=== PATIENT | female | born 1980 ===

== ENCOUNTER 2024-10-17 09:39 | Emergency (ER) | payer OTHER ==
[~2024-10-17] VITALS: Ht 165.1 cm; Wt 50.2 kg
[2024-10-17 09:47] VITALS: BP 105/66; PULSE 82; RESP 18; TEMP 97.8; O2SAT 100
== END 2024-10-17 15:45 | disposition left against medical advice (07) ==
LOC: ER 09:40
DX: R20.0 Anesthesia of skin (principal); Z53.21 Procedure and treatment not carried out due to patient leaving prior to being seen by health care provider

== ENCOUNTER 2025-04-27 12:54 | Emergency (ER) | payer OTHER ==
[~2025-04-27] VITALS: Ht 165.1 cm; Wt 41.0 kg
[2025-04-27 12:57] VITALS: BP 142/73; PULSE 85; RESP 16; TEMP 98.7; O2SAT 100
--- NOTE | 2025-04-27 13:51 | Physician Documentation ---
History of Present Illness ~ Chief Complaint: See Chief Complaint Stated Complaint: LUMP ON BACK Time Seen by MD: 13:31 Primary Medical Doctor: [facility] Source: patient Mode of Arrival: POV Exam Limitations: no limitations HPI 45-year-old female requesting a referral to Dermatology for an atypical skin lesion to her left shoulder blade she is concerned for cancer. She has noticed a little mole that has now turned a little crusty and is bigger in size. Medication Reconciliation Allergies: Coded Allergies: No Known Allergies (Unverified , 10/17/24) Past Medical History Past Medical History: No Pertinent History Review of Systems All Other Systems at this time: Reviewed and Negative Integumentary: Reports: see HPI Physical Exam Vital Signs: RN Vital Signs have been reviewed: Yes, Temperature: 98.7, Source: Temporal, Heart Rate: 85, Respiratory Rate: 16, BP: 142/73, Pulse Oximetry: 100, Weight: 40.950 Physical Exam General: Alert, no apparent distress. Respiratory: Lungs clear, no respiratory distress. Chest: No accessory muscle use. Cardiovascular: Regular rate and rhythm, no murmurs. Extremities: Normal range of motion, no deformity. Neurologic: Oriented x4. Psychiatric: Normal mood and affect. Skin: Normal color, warm and dry. No edema, no ecchymosis. 3 mm atypical pigmented skin lesion although on a tattooed area difficult to determine borders small area of keratotic skin nontender Progress Results/Orders Results/Orders Vital Signs 04/27/25 12:57 Temp 98.7 Pulse 85 Resp 16 B/P (MAP) 142/73 Pulse Ox 100 Medical Decision Making Findings Atypical skin lesion needs evaluation for malignancy. Departure Time of Disposition: 13:49 Disposition: 01 HOME / SELF CARE / HOMELESS Impression: Primary Impression: Atypical pigmented skin lesion Condition: Stable Additional Instructions: Recommended follow up with reheater helper possibly [facility] derm in [facility] for atypical skin lesion to the left scapula for evaluation of malignancy. Referrals: NO PRIMARY CARE PROVIDER (PCP) Education Educated: Patient Educated regarding: diagnosis, treatment, need for follow up Signature Scribe Signature: no scribe Attestation: The note accurately reflects work and decisions made by me.Janet DICK 04/27/25 13:53 JANET NOLASCO NP Apr 27, 2025 13:51
== END 2025-04-27 14:20 | disposition home or self-care (01) ==
LOC: ER 12:55
DX: L98.9 Disorder of the skin and subcutaneous tissue, unspecified (principal)
CPT/HCPCS: 99282